=== PATIENT | female | born 1980 | race Two or more races ===

== ENCOUNTER 2022-08-23 11:37 | Emergency (ER) | payer OTHER ==
[~2022-08-23] VITALS: Ht 147.3 cm; Wt 65.8 kg
== END 2022-08-23 14:54 | disposition home or self-care (01) ==
LOC: ER 11:37
DX: R10.30 Lower abdominal pain, unspecified (principal)

== ENCOUNTER 2022-10-05 20:48 | Emergency (ER) | payer OTHER ==
[~2022-10-05] VITALS: Ht 149.9 cm; Wt 64.0 kg
[2022-10-06] MEDS ORDERED: KETO10TA2 PO (00:34)
== END 2022-10-06 00:40 | disposition home or self-care (01) ==
LOC: ER 20:48
DX: N83.202 Unspecified ovarian cyst, left side (principal); N94.0 Mittelschmerz